=== PATIENT | female | born 1945 | race Caucasian/White ===

== ENCOUNTER 2017-04-13 15:35 | Emergency (ER) | payer BC, OTHER ==
[2017-04-13 15:45] VITALS: BP 130/57
--- NOTE | 2017-04-13 16:21 | UC ---
Skin Complaint HPI - HPI Summary HPI Summary: 71 female presents with complaints of right big toe pain and possible infection that began 1 week ago. Patient states one week ago she dropped a glass baking ramires on her toe and developed a blood blister. She popped the blister 1 week ago and has since been experiencing some tenderness on palpation and drainage/ redness from the right big toe surrounding her toenail. She denies increasing redness or pain to the proximal toe or surrounding foot. She denies fever/ chills. Able to bear weight and walk without problem, no concern for fracture. Concerned for infection due to drainage and redness surrounding her toe nail folds. Has only used triple antibiotic ointment twice and has been applying ice. Denies any other complaints at this time. Over the past 7 days toe symptoms have not worsened, they just have not improved. Never been diagnosed with MRSA. - History of Current Complaint Chief Complaint: UCLowerExtremity Time Seen by Provider: 04/13/17 15:57 Stated Complaint: RT BIG TOE INJURY Hx Obtained From: Patient Onset/Duration: Sudden Onset, Lasting Weeks - 1 Skin Exposure Onset/Duration: Weeks Ago Timing: Constant Onset Severity: Mild Current Severity: None Pain Intensity: 3 Pain Scale Used: 0-10 Numeric - only when touching toe Location: Foot (Right) - big toe Character: Pain, Redness Aggravating: Nothing Alleviating: Nothing Associated Signs & Symptoms: Positive: Drainage - from right great toe - Allergy/Home Medications Allergies/Adverse Reactions: Allergies Allergy/AdvReac Type Severity Reaction Status Date / Time No Known Allergies Allergy Verified 04/13/17 15:45 Review of Systems Constitutional: Negative Skin: Other - drainage and redness of great toe, right Respiratory: Negative Cardiovascular: Negative Neurovascular: Negative Musculoskeletal: Negative All Other Systems Reviewed And Are Negative: Yes PMH/Surg Hx/FS Hx/Imm Hx - Additional Past Medical History Additional PMH: denies PMHx. no asthma or diabetes. - Surgical History Surgical History: Yes Surgery Procedure, Year, and Place: COMPLETE HYSTERECTOMY--1996 - Family History Known Family History: Positive: Hypertension - Social History Alcohol Use: Rare Substance Use Type: None Smoking Status (MU): Never Smoked Tobacco - Immunization History Vaccination Up to Date: Yes Physical Exam Triage Information Reviewed: Yes Appearance: Well-Appearing, No Pain Distress, Well-Nourished Vital Signs: Initial Vital Signs Temp 98.2 F 04/13/17 15:38 Pulse 76 04/13/17 15:38 Resp 14 04/13/17 15:38 BP 130/57 04/13/17 15:38 Pulse Ox 97 04/13/17 15:38 Vital Signs Reviewed: Yes Eyes: Positive: Conjunctiva Clear ENT: Positive: Normal ENT inspection, Hearing grossly normal Neck: Positive: Supple, Nontender Respiratory: Positive: Chest non-tender, Lungs clear, Normal breath sounds, No respiratory distress, No accessory muscle use Cardiovascular: Positive: RRR, No Murmur, Pulses Normal - 2+, Brisk Capillary Refill - < 2 sec Musculoskeletal: Positive: Strength Intact, ROM Intact, No Edema Neurological: Positive: Alert - sensation intact Skin: Positive: Other - drainage and some mild erythema noted of right great toe surrounding toe nail at nail folds. ecchymosis noted at first and second distal toes from recent injury. no purulent discharge or surrounding cellulitis noted. no red streaks or warmth. no edema noted. similar to paronychia, infection from popping blister. Course/Dx - Course Course Of Treatment: wound culture obtained from great toe. will await results. due to HPI and PE findings will be treated for toenail infection/paronychia with bactroban. ibuprofen for discomfort and swelling. aware of worsening signs and symptoms to watch out for and be aware of incase of infection worsening, may need oral. however at this time minimal PE findings and no concern for cellulitis. warm soaks with antiseptic solution, keep clean and dry. podiatry referral for toe nail problems, if needed. follow up PCP. - Differential Diagnoses - Skin Complaint Differential Diagnoses: Abscess, Cellulitis, MRSA, Other - paronychia - Diagnoses Provider Diagnoses: paronychia, infection right big toe nail Discharge - Discharge Plan Condition: Stable Disposition: HOME Prescriptions: Mupirocin 2% OINT* [Bactroban 2 % Oint*] 1 applic TOPICAL BID #1 tube Patient Education Materials: Paronychia (ED) Referrals: Cole Salomon DO [Primary Care Provider] - Additional Instructions: Use prescribed topical antibiotic cream twice daily for the next 7 days. Soak in warm water and epsom salts to multiple times daily. Keep clean and dry. Let air get to it and avoid warm/dark places (shoes) when possible. Follow up with podiatry if toe continues to be bothersome. If you develop worsening signs of infection such as increasing redness, swelling , pain, discharge, and fever/chills please seek medical attention immediately as oral antibiotics may be necessary. Follow up with PCP.
--- NOTE | 2017-04-15 14:35 | UC ---
Progress - Progress Note Progress Note: 71 yo F with infected "blood blister" that was popped, rx'd with bactroban while awaiting culture results. No sign of cellulitis on initial eval. Wound cult shows staph aureus. Will start empiric oral therapy, pending sensitivities. MRSA neg, and no hx MRSA. No allergies. Will start Cephalexin 500mg po qid x 10 days. Rx sent to [facility] [address], [place]. Bobby Lindsay MD 14:36pm
== END 2017-04-13 16:28 | disposition home or self-care (01) ==
LOC: UCCORT 15:35
DX: L03.031 Cellulitis of right toe (principal); Z90.710 Acquired absence of both cervix and uterus
CPT/HCPCS: 87070; 87077; 87186; 87205; 87640; 87641; 99212; G0463

== ENCOUNTER 2017-06-18 16:24 | Emergency (ER) | payer BC, MEDICARE ==
[2017-06-18 16:56] VITALS: BP 139/55
--- NOTE | 2017-06-18 17:51 | RAD ---
HISTORY: Left shoulder pain COMPARISONS: None VIEWS: 4, Frontal internal rotation, external rotation, outlet, and axillary views of the left shoulder FINDINGS: BONE DENSITY: Normal. BONES: There is no displaced fracture. 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 ALIGNMENT: There is no dislocation. SOFT TISSUES: There is soft tissue calcification along the greater tuberosity OTHER FINDINGS: None. IMPRESSION: NO ACUTE OSSEOUS INJURY. SOFT TISSUE CALCIFICATIONS SUGGESTIVE OF A CALCIFIC TENDINOPATHY. IF SYMPTOMS PERSIST, RECOMMEND REPEAT IMAGING.
--- NOTE | 2017-06-18 18:37 | UC ---
Shoulder Pain HPI - HPI Summary HPI Summary: LEFT SHOULDER PAIN SINCE 06/16/17 RAKING LEAVES LIMITED ROM, PAIN WITH MOVEMENT. NO JAW PAIN. NO CHEST PAIN. NO SOB. NO PALPITATIONS. TENDER TO PALPATION - History of Current Complaint Chief Complaint: UCUpperExtremity Stated Complaint: LEFT ARM INJURY Time Seen by Provider: 06/18/17 17:14 Hx Obtained From: Patient Onset/Duration: Gradual Onset, Lasting Days, Still Present Timing: Days Severity Initially: Moderate Severity Currently: Moderate Location Of Pain: Is Discrete @ - LEFT SHOULDER Pain Intensity: 8 Pain Scale Used: 0-10 Numeric Character: Dull, Aching, Spasmodic, Stiffness Aggravating Factor(s): Movement, Flexion, Extension, Internal Rotation, External Rotation Alleviating Factor(s): OTC Meds - Risk Factors Non-Orthopedic Risk Factor: Negative DVT Risk Factors: Negative Septic Arthritis Risk Factor: Negative - Allergies/Home Medications Allergies/Adverse Reactions: Allergies Allergy/AdvReac Type Severity Reaction Status Date / Time No Known Allergies Allergy Verified 06/18/17 16:44 Home Medications: Home Medications Acetaminophen [Acetaminophen Extra Stren] 500 mg PO DAILY 06/18/17 [History Confirmed 06/18/17] PMH/Surg Hx/FS Hx/Imm Hx Previously Healthy: Yes - Surgical History Surgical History: Yes Surgery Procedure, Year, and Place: COMPLETE HYSTERECTOMY--1996 - Family History Known Family History: Positive: Hypertension - Social History Occupation: Employed Full-time Lives: With Family Alcohol Use: Rare Substance Use Type: None Smoking Status (MU): Never Smoked Tobacco - Immunization History Vaccination Up to Date: Yes Review of Systems Constitutional: Negative Skin: Negative Eyes: Negative ENT: Negative Respiratory: Negative Cardiovascular: Negative Gastrointestinal: Negative Genitourinary: Negative Motor: Negative Neurovascular: Negative Musculoskeletal: Arthralgia, Myalgia Neurological: Negative Psychological: Negative All Other Systems Reviewed And Are Negative: Yes Physical Exam Triage Information Reviewed: Yes Appearance: Well-Appearing, Well-Nourished, Pain Distress Vital Signs: Initial Vital Signs Temp 98.6 F 06/18/17 16:39 Pulse 74 06/18/17 16:39 Resp 14 06/18/17 16:39 BP 139/55 06/18/17 16:39 Pulse Ox 99 06/18/17 16:39 Vital Signs Reviewed: Yes Eye Exam: Normal ENT Exam: Normal ENT: Positive: Normal ENT inspection, Hearing grossly normal, Pharynx normal, TMs normal Dental Exam: Normal Neck exam: Normal Neck: Positive: Supple, Nontender, No Lymphadenopathy Respiratory Exam: Normal Respiratory: Positive: Chest non-tender, Lungs clear, Normal breath sounds, No respiratory distress, No accessory muscle use Cardiovascular Exam: Normal Cardiovascular: Positive: RRR, No Murmur, Pulses Normal Abdominal Exam: Normal Abdomen Description: Positive: Nontender, No Organomegaly Musculoskeletal: Positive: No Edema, Strength Limited @ - LEFT SHOULDER, ROM Limited @ - LEFT SHOULDER Neurological Exam: Normal Psychological Exam: Normal Skin Exam: Normal Shoulder Course/Dx - Differential Dx/Diagnosis Differential Diagnosis/HQI/PQRI: Fracture (Closed), Sprain, Strain Provider Diagnoses: LEFT SHOULDER CALCIFIC TENDONITIS Discharge - Discharge Plan Condition: Stable Disposition: HOME Patient Education Materials: Calcific Tendinitis (ED), Shoulder Pain (ED) Referrals: Moshe Tello MD [Medical Doctor] - Cole Salomon DO [Primary Care Provider] - Additional Instructions: PHYSICAL THERAPY REFERRAL: You have been prescribed physical therapy. Treatments may include stretching, exercise, application of heat or cold, and other modalities. After an injury, PT can reduce swelling and pain. In recovery, PT is used to restore mobility and strength. Your specific treatment goals are: ___x__ Reduction of Swelling (EGS, US, ice as needed) ___x__ Pain Reduction (EGS, US, ice as needed) TENS Pack Fitting and Instruction Wound Hydrotherapy ____x_ Preservation of Mobility ____x_ Bahai of Mobility ___x__ Strength Bahai ___x__ Work or Sports Hardening This instruction sheet also serves as your PHYSICAL THERAPY REFERRAL! Please take it with you to the therapist, so he/she will be aware of your diagnosis and treatment plan. You may see the physical therapist of your choice for these treatments, but may wish to check with your insurance to be sure the provider you select is covered. It's important to see the doctor to whom you have been referred for follow up.
== END 2017-06-18 18:23 | disposition home or self-care (01) ==
LOC: UCCORT 16:24
DX: M75.32 Calcific tendinitis of left shoulder (principal); Z90.710 Acquired absence of both cervix and uterus
CPT/HCPCS: 99212; G0463